=== PATIENT | male | born 2000 | race Caucasian/White ===

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

== ENCOUNTER 2020-02-28 22:50 | Emergency (ER) | payer BC, SELFPAY ==
--- NOTE | 2020-02-29 07:07 | RAD ---
LEFT ANKLE 3 VIEWS: Date: 02/28/2020 Soft tissue swelling is present laterally. No fracture seen. The ankle joint itself is normal in appe arance. IMPRESSION: Lateral swelling. POS: HOME
== END 2020-02-28 23:25 | disposition home or self-care (01) ==
LOC: BURERS 22:50
DX: S93.402A Sprain of unspecified ligament of left ankle, initial encounter (principal); F17.220 Nicotine dependence, chewing tobacco, uncomplicated; X50.1XXA Overexertion from prolonged static or awkward postures, initial encounter

== ENCOUNTER 2020-08-02 14:13 | Emergency (ER) | payer SELFPAY ==
[2020-08-03 02:30] LABS: SARS-CoV-2 PCR by NAA Not Detected (NotDetected)
== END 2020-08-02 15:13 | disposition home or self-care (01) ==
LOC: BURERS 14:13
DX: Z20.822 Contact with and (suspected) exposure to COVID-19 (principal); F17.220 Nicotine dependence, chewing tobacco, uncomplicated
CPT/HCPCS: 87635; 99283; U0003; U0005

== ENCOUNTER 2020-08-18 22:19 | Emergency (ER) | payer SELFPAY | END 2020-08-18 23:15 | disposition home or self-care (01) | LOC: BURERS 22:19 | DX: F10.129 Alcohol abuse with intoxication, unspecified (principal); F17.220 Nicotine dependence, chewing tobacco, uncomplicated | CPT/HCPCS: 99284 ==

== ENCOUNTER 2021-05-10 17:57 | Emergency (ER) | payer SELFPAY ==
[2021-05-10] MEDS ORDERED: traMADol HCl 50 MG TAB ONE (19:25)
[2021-05-10] MEDS ORDERED: Ibuprofen 800 MG TAB ONE (19:25)
== END 2021-05-10 19:29 | disposition home or self-care (01) ==
LOC: BURERS 17:57
DX: S46.912A Strain of unspecified muscle, fascia and tendon at shoulder and upper arm level, left arm, initial encounter (principal); F17.220 Nicotine dependence, chewing tobacco, uncomplicated; X50.0XXA Overexertion from strenuous movement or load, initial encounter

== ENCOUNTER 2021-09-25 16:33 | Emergency (ER) | payer SELFPAY | END 2021-09-25 17:18 | disposition home or self-care (01) | LOC: BURERS 16:33 | DX: S46.912A Strain of unspecified muscle, fascia and tendon at shoulder and upper arm level, left arm, initial encounter (principal) | CPT/HCPCS: 99282 ==

== ENCOUNTER 2021-11-05 13:15 | Emergency (ER) | payer OTHER, SELFPAY ==
[2021-11-05] MEDS ORDERED: Lidocaine 2% 20 ml MDV ONE (13:21)
[2021-11-05] MEDS ORDERED: Boostrix 0.5 ML (Tdap) VIAL ONE (14:15)
== END 2021-11-05 14:27 | disposition home or self-care (01) ==
LOC: BURERS 13:15
DX: S61.217A Laceration without foreign body of left little finger without damage to nail, initial encounter (principal); Z23 Encounter for immunization; W26.0XXA Contact with knife, initial encounter
CPT/HCPCS: 12001; 90471; 90715

== ENCOUNTER 2021-11-16 17:59 | Emergency (ER) | payer SELFPAY | END 2021-11-16 18:24 | disposition home or self-care (01) | LOC: BURERS 17:59 | DX: S61.217D Laceration without foreign body of left little finger without damage to nail, subsequent encounter (principal); X58.XXXD Exposure to other specified factors, subsequent encounter ==

== ENCOUNTER 2024-05-03 09:33 | Emergency (ER) | payer BC, SELFPAY ==
[2024-05-03] MEDS ORDERED: Dexamethasone 10 MG/ML VIAL ONE ×3 (10:11→10:33)
[2024-05-03] MEDS ORDERED: Bicillin LA 1.2 MILLION UNITS/2 ML SYRINGE ONE (10:12)
[2024-05-03] MEDS ORDERED: Metoclopramide HCl 10 MG (2 mL) VIAL ONE (10:12)
== END 2024-05-03 10:38 | disposition home or self-care (01) ==
LOC: BURERS 09:33
DX: B34.9 Viral infection, unspecified (principal); J02.0 Streptococcal pharyngitis
CPT/HCPCS: 96372; 99283; J0561; J1100; J2765